=== PATIENT | female | born 1985 | race Caucasian/White ===

== ENCOUNTER 2016-11-21 11:43 | Inpatient (IN) | payer OTHER ==
[2016-11-21 12:14] VITALS: BMI 41.8
--- NOTE | 2016-11-21 16:13 | HP ---
CIWA Score - CIWA Score Nausea/Vomitin Muscle Tremors: 4-Moderate,w/Arms Extend Anxiety: 4-Mod. Anxious/Guarded Agitation: 4-Moderately Restless Paroxysmal Sweats: 3 Orientation: 0-Oriented Tacttile Disturbances: 0-None Auditory Disturbances: 0-None Visual Disturbances: 0-None Headache: 0-None Present CIWA-Ar Total Score: 17 Admission ROS BHS - HPI Allergies/Adverse Reactions: Allergies Allergy/AdvReac Type Severity Reaction Status Date / Time No Known Drug Allergies Allergy Verified 11/21/16 15:22 nka Allergy Uncoded 11/21/16 15:22 - Ebola screening Have you traveled outside of the country in the last 21 days: No Have you had contact with anyone from an Ebola affected area: No Have you been sick,other than usual withdrawal symptoms: No Do you have a fever: No - Review of Systems Constitutional: Diaphoresis EENT: reports: No Symptoms Reported Respiratory: reports: Cough Cardiac: reports: Palpitations (pulse 115) GI: reports: Nausea, Abdominal cramping : reports: No Symptoms Reported Musculoskeletal: reports: Back Pain, Joint Pain Integumentary: reports: Sweating Neuro: reports: Seizure (2007), Tremors Endocrine: reports: No Symptoms Reported Hematology: reports: No Symptoms Reported Psychiatric: reports: No Sypmtoms Reported Other Systems: Reviewed and Negative Patient History - Patient Medical History Hx Anemia: No Hx Asthma: No Hx Chronic Obstructive Pulmonary Disease (COPD): No Hx Cancer: No Hx Cardiac Disorders: No Hx Congestive Heart Failure: No Hx Hypertension: Yes (hctz 12.5) Hx Hypercholesterolemia: No Hx Pacemaker: No HX Cerebrovascular Accident: No Hx Seizures: Yes (BZO rlt 2007) Hx Dementia: No Hx Diabetes: No Hx Gastrointestinal Disorders: No Hx Liver Disease: Yes Hx Genitourinary Disorders: No Hx Sexually Transmitted Disorders: No Hx Renal Disease (ESRD): No Hx Thyroid Disease: No Hx Human Immunodeficiency Virus (HIV): No Hx Hepatitis C: Yes (being w/u for treatment) Hx Depression: Yes (panic attacks) Hx Suicide Attempt: No Hx Bipolar Disorder: No Hx Schizophrenia: No - Patient Surgical History Past Surgical History: Yes Hx Neurologic Surgery: No Hx Cataract Extraction: No Hx Cardiac Surgery: No Hx Lung Surgery: No Hx Breast Surgery: No Hx Breast Biopsy: No Hx Abdominal Surgery: No Hx Appendectomy: No Hx Cholecystectomy: No Hx Genitourinary Surgery: No Hx Section: No Hx Orthopedic Surgery: Yes (RT ANKLE SURGERY, ORIF) Anesthesia Reaction: No - PPD History Previous Implant?: Yes Documented Results: Negative w/o proof Implanted On Prior [facility] Admission?: No PPD to be Administered?: Yes - Reproductive History Patient is a Female of Child Bearing Age (11 -55 yrs old): Yes Last Menstrual Period: 11/05/16 Patient : No - Smoking Cessation Smoking history: Current every day smoker Have you smoked in the past 12 months: Yes Aproximately how many cigarettes per day: 10 Hx Chewing Tobacco Use: No Initiated information on smoking cessation: Yes 'Breaking Loose' booklet given: 11/21/16 - Substance & Tx. History Hx Alcohol Use: Yes Hx Substance Use: Yes Substance Use Type: Alcohol, Cocaine Hx Substance Use Treatment: Yes (OTP) - Substances Abused Heroin Route: Injection Frequency: 1-3 times last 30 days Amount used: 2bags- $20 Age of first use: 15 Date of Last Use: 11/18/16 Alcohol Route: Oral Frequency: Daily Amount used: vodka- half gallon daily- $20 Age of first use: 15 Date of Last Use: 11/21/16 Cocaine Route: Injection Frequency: 3-6 times per week Amount used: $100 Age of first use: 26 Date of Last Use: 11/20/16 Family Disease History - Family Disease History Family Disease History: CA: Father (esophagus), Other: Brother (opioid) Admission Physical Exam BHS - Vital Signs Vital Signs: Vital Signs - 24 hr 11/21/16 12:06 Temperature 98.0 F Pulse Rate 115 H Respiratory 20 Rate Blood Pressure 140/96 - Physical General Appearance: Yes: Tremorous, Sweating, Anxious HEENTM: Yes: Within Normal Limits Respiratory: Yes: Chest Non-Tender, Lungs Clear, Normal Breath Sounds Neck: Yes: Supple Breast: Yes: Breast Exam Deferred Cardiology: Yes: Regular Rhythm, Regular Rate, S1, S2 Abdominal: Yes: Normal Bowel Sounds, Non Tender, Soft, Protuberent Genitourinary: Yes: Within Normal Limits Back: Yes: Within Normal Limits Musculoskeletal: Yes: Within Normal Limits Extremities: Yes: Tremors Neurological: Yes: Fully Oriented, Alert Integumentary: Yes: Diaphoresis Lymphatic: Yes: Within Normal Limits - Diagnostic (1) Alcohol dependence with uncomplicated withdrawal Current Visit: Yes Status: Acute (2) Cocaine dependence, uncomplicated Current Visit: Yes Status: Acute (3) Opioid dependence on agonist therapy Current Visit: Yes Status: Acute Cleared for Admission [facility] - Detox or Rehab [facility] Level of Care: Medically Managed Detox Regimen/Protocol: Librium [facility] Breath Alcohol Content Breath Alcohol Content: 0.021 Urine Pregancy Test - Result Urine Test Results: Negative- NO Line Present Urine Drug Screen - Results Drug Screen Negative: No Urine Drug Screen Results: GABRIELLA-Cocaine, OPI-Opiates, BZO-Benzodiazepines, MTD- Methadone, TCA-Tricyclic Antidepress, OXY-Oxycodone
[2016-11-21] MEDS ORDERED: diazePAM 5 MG TABLET PO ONE (16:21)
[2016-11-21] MEDS ORDERED: IBUPROFEN 400 MG TABLET (FP) PO PRN (16:21)
[2016-11-21] MEDS ORDERED: NICOTINE POLACRILEX 2 MG GUM BC PRN (16:21)
[2016-11-21] MEDS ORDERED: MAG HYDROX/AL HYDROX/SIMETH 30 ML UNIT-DOSE CUP PO PRN (16:21)
[2016-11-21] MEDS ORDERED: P-EPHED 60MG/TRIPROLIDI 2.5MG TABLET PO PRN (16:21)
[2016-11-21] MEDS ORDERED: MENTHOL/PHENOL 1 EACH UD MM PRN (16:21)
[2016-11-21] MEDS ORDERED: MAGNESIUM HYDROX 2400MG/30ML ORAL SUSPENSION 30 ML CUP PO PRN (16:21)
[2016-11-21] MEDS ORDERED: guaiFENesin/D-METHORPHAN HB 10 ML UNIT-DOSE CUPS PO PRN (16:21)
[2016-11-21] MEDS ORDERED: MAGNESIUM CITRATE 300 ML BOTTLE PO PRN (16:21)
[2016-11-21] MEDS ORDERED: LOPERAMIDE HCL 2 MG CAPSULE PO PRN (16:21)
[2016-11-21] MEDS ORDERED: ACETAMINOPHEN 325 MG TABLET (FP) PO PRN (16:21)
[2016-11-21] MEDS ORDERED: hydrOXYzine PAMOATE 50 MG CAPSULE (FP) PO PRN (16:21)
[2016-11-21] MEDS: NICOTINE 21 MG/24 HOURS TOPICAL PATCH TD SCH (17:05)
[2016-11-21] MEDS: diphenhydrAMINE HCL 50 MG CAPSULE PO PRN (22:16)
[2016-11-21] MEDS: THIAMINE HCL 100 MG TABLET (FP) PO SCH (22:16)
[2016-11-21] MEDS: diazePAM 5 MG TABLET PO SCH (22:16)
[2016-11-22] MEDS: diazePAM 5 MG TABLET PO PRN ×3 (00:30→16:51)
[2016-11-22] MEDS: diphenhydrAMINE HCL 50 MG CAPSULE PO PRN (00:30)
[2016-11-22] MEDS: diazePAM 5 MG TABLET PO SCH ×3 (05:14→22:11)
[2016-11-22] MEDS ORDERED: METHADONE HCL 10 MG TABLET PO ONE (08:43)
--- NOTE | 2016-11-22 08:51 | PN ---
S CIWA - CIWA Score Nausea/Vomitin Muscle Tremors: 2 Anxiety: 3 Agitation: 3 Paroxysmal Sweats: 3 Orientation: 0-Oriented Tacttile Disturbances: 2-Mild Itch/Numbness/Burn Auditory Disturbances: 0-None Visual Disturbances: 0-None Headache: 0-None Present CIWA-Ar Total Score: 15 BHS Progress Note (SOAP) Subjective: INTERRUPTED SLEEP, SWEATS, SHAKES, BODYACHES Objective: 11/22/16 08:49 Vital Signs Temperature 97.5 F L 11/22/16 06:00 Pulse Rate 93 H 11/22/16 06:00 Respiratory Rate 18 11/22/16 06:00 Blood Pressure 131/84 11/22/16 06:00 O2 Sat by Pulse Oximetry (%) 11/22/16 10:24 PT AOX3 IN NAD AMBULATING Assessment: 11/22/16 08:50 withdrawal sx's 11/22/16 10:24 Plan: cont. detox increase fluids methadone 115mg /d MOTRIN PRN
[2016-11-22] MEDS ORDERED: METHADONE 80 MG, METHADONE 30 MG, METHADONE 5 MG PO ONE (09:00)
[2016-11-22] MEDS ORDERED: METHADONE HCL 10 MG TABLET ONE (09:18)
[2016-11-22] MEDS ORDERED: METHADONE HCL 40 MG DISPERSABLE TABLET ONE (09:18)
[2016-11-22] MEDS ORDERED: METHADONE HCL 5 MG TABLET ONE (09:19)
[2016-11-22] MEDS: NICOTINE 21 MG/24 HOURS TOPICAL PATCH TD SCH (10:12)
[2016-11-22] MEDS: PRENATAL VITAMINS W/ FOLIC ACID TABLET (FP) PO SCH (10:13)
[2016-11-22 10:28] LABS: MCH 27.1 pg (25.7-33.7); MCHC 33.1 g/dl (32.0-36.0); MEAN CELL VOLUME 81.8 fl (80-96); PLATELET COUNT 245 K/MM3 (134-434); RDW 13.5 % (11.6-15.6)
[2016-11-22] MEDS ORDERED: ZOLPIDEM TARTRATE 5 MG TABLET PO PRN (10:38)
[2016-11-22] MEDS ORDERED: hydrOXYzine PAMOATE 50 MG CAPSULE (FP) PO PRN (10:38)
[2016-11-22 10:41] LABS: ALBUMIN 3.3 g/dl (3.4-5.0); ALK PHOS 85 U/L (45-117); BILIRUBIN,TOTAL 0.3 mg/dL (0.2-1.0); CALCIUM 8.7 mg/dL (8.5-10.1); CO2 30 mmol/L (21-32); CREATININE 0.8 mg/dL (0.55-1.02); GLUCOSE,RANDOM 74 mg/dL (74-106); SGOT/AST 21 U/L (15-37); SGPT/ALT 34 U/L (12-78); TOT PROT 6.7 g/dl (6.4-8.2)
[2016-11-22 10:46] LABS: ANION GAP 7 (8-16)
[2016-11-22] MEDS: CYCLOBENZAPRINE HCL 10 MG TABLET (FP) PO SCH ×2 (10:48→22:11)
--- NOTE | 2016-11-22 14:54 | CONSULT ---
[facility] Psychiatric Consult - Data Date of interview: 11/22/16 Admission source: [facility] Identifying data: This is 31 years old female with no psychiatric hospitalization history intoxicated with: Alcohol, Cocaine, Opioids and Nicotine Substance Abuse History: - Smoking Cessation. Smoking history: Current every day smoker. Have you smoked in the past 12 months: Yes. Aproximately how many cigarettes per day: 10. Hx Chewing Tobacco Use: No. Initiated information on smoking cessation: Yes. 'Breaking Loose' booklet given: 11/21/16. - Substance & Tx. History. Hx Alcohol Use: Yes. Hx Substance Use: Yes. Substance Use Type : Alcohol, Cocaine. Hx Substance Use Treatment: Yes (OTP). - Substances Abused. Heroin. Route: Injection. Frequency: 1-3 times last 30 days. Amount used: 2bags- $20. Age of first use: 15. Date of Last Use: 11/18/16. * * Alcohol. Route: Oral. Frequency: Daily. Amount used: vodka- half gallon daily- $20. Age of first use: 15. Date of Last Use: 11/21/16. Cocaine. Route: Injection. Frequency: 3-6 times per week. Amount used: $100. Age of first use: 26. Date of Last Use: 11/20/16 Medical History: Denies Psychiatric History: Patient reprots history of anxiety and depression, reports taking prior to admission: Zoloft 25mg po qd. Ambien 10mg po qhs. Flexeril 10mg po bid Physical/Sexual Abuse/Trauma History: Denies Additional Comment: Zoloft 25mg po qd. Ambien 10mg po qhs. Flexeril 10mg po bid Mental Status Exam - Mental Status Exam Alert and Oriented to: Person Cognitive Function: Fair Patient Appearance: Unkempt Mood: Sad Affect: Flat Patient Behavior: Sedated Speech Pattern: Delayed Voice Loudness: Mildly Soft/Quiet Thought Process: Circumstantial Thought Disorder: Being Controlled Hallucinations: Denies Suicidal Ideation: Denies Homicidal Ideation: Denies Insight/Judgement: Fair Sleep: Difficulty falling asleep Appetite: Fair Muscle strength/Tone: Mild Hypotonicity Gait/Station: Shuffling Additional Comments: Zoloft 25mg po qd. Ambien 10mg po qhs. Flexeril 10mg po bid Psychiatric Findings - Problem List ([place] 1, 2,3) (1) Alcohol dependence with uncomplicated withdrawal Current Visit: Yes Status: Acute (2) Cocaine dependence, uncomplicated Current Visit: Yes Status: Acute (3) Opioid dependence on agonist therapy Current Visit: Yes Status: Acute (4) Drug-induced mood disorder Current Visit: Yes Status: Acute - Initial Treatment Plan Initial Treatment Plan: Zoloft 25mg po qd. Ambien 10mg po qhs. Flexeril 10mg po bid
--- NOTE | 2016-11-22 15:01 | EKG ---
Test Reason : Blood Pressure : / mmHG Vent. Rate : 086 BPM Atrial Rate : 086 BPM P-R Int : 142 ms QRS Dur : 084 ms QT Int : 380 ms P-R-T Axes : 042 017 022 degrees QTc Int : 454 ms NORMAL SINUS RHYTHM NORMAL ECG NO PREVIOUS ECGS AVAILABLE Confirmed by DALJIT SUAZO MD ([id number]) on 11/22/2016 3:00:50 PM Referred By: Confirmed By:DALJIT SUAZO MD
[2016-11-22] MEDS: THIAMINE HCL 100 MG TABLET (FP) PO SCH (22:12)
[2016-11-22] MEDS: ZOLPIDEM TARTRATE 10 MG TABLET (PARK CARE ONLY) PO PRN (22:15)
[2016-11-23] MEDS: diazePAM 5 MG TABLET PO PRN ×3 (03:20→18:43)
[2016-11-23] MEDS ORDERED: METHADONE HCL 10 MG TABLET ONE ×2 (04:09→04:42)
[2016-11-23] MEDS ORDERED: METHADONE HCL 40 MG DISPERSABLE TABLET ONE ×2 (04:10→04:42)
[2016-11-23] MEDS ORDERED: METHADONE HCL 5 MG TABLET ONE (04:42)
[2016-11-23] MEDS ORDERED: METHADONE HCL 5 MG TABLET PO SCH (06:00)
[2016-11-23] MEDS: METHADONE 80 MG, METHADONE 30 MG, METHADONE 5 MG PO SCH (07:11)
--- NOTE | 2016-11-23 09:57 | PN ---
S CIWA - CIWA Score Nausea/Vomitin-No Nausea/No Vomiting Muscle Tremors: 4-Moderate,w/Arms Extend Anxiety: 3 Agitation: 4-Moderately Restless Paroxysmal Sweats: 3 Orientation: 0-Oriented Tacttile Disturbances: 0-None Auditory Disturbances: 0-None Visual Disturbances: 0-None Headache: 1-Very Mild CIWA-Ar Total Score: 15 BHS Progress Note (SOAP) Subjective: anxiety sweats shakes constipation irritable Objective: 11/23/16 10:17 Vital Signs Temperature 97.7 F 11/23/16 10:01 Pulse Rate 104 H 11/23/16 10:01 Respiratory Rate 20 11/23/16 10:01 Blood Pressure 125/79 11/23/16 10:01 O2 Sat by Pulse Oximetry (%) Laboratory Tests 11/21/16 11/22/16 11/22/16 07:00 07:00 07:00 WBC 9.0 RBC 4.81 Hgb 13.0 Hct 39.3 MCV 81.8 MCHC 33.1 RDW 13.5 Plt Count 245 MPV 8.0 Sodium 141 Potassium 4.3 Chloride 104 Carbon Dioxide 30 Anion Gap 7 L BUN 14 Creatinine 0.8 Creat Clearance w eGFR > 60 Random Glucose 74 Calcium 8.7 Total Bilirubin 0.3 AST 21 ALT 34 Alkaline Phosphatase 85 Total Protein 6.7 Albumin 3.3 L RPR Titer Hepatitis C Antibody >11.0 H 11/22/16 07:00 WBC RBC Hgb Hct MCV MCHC RDW Plt Count MPV Sodium Potassium Chloride Carbon Dioxide Anion Gap BUN Creatinine Creat Clearance w eGFR Random Glucose Calcium Total Bilirubin AST ALT Alkaline Phosphatase Total Protein Albumin RPR Titer Nonreactive Hepatitis C Antibody awake/alert ambulating no acute distress Assessment: 11/23/16 10:17 withdrawal sx Plan: continue detox increase fluids prune juice
[2016-11-23] MEDS: diazePAM 5 MG TABLET PO SCH ×2 (10:38→22:08)
[2016-11-23] MEDS: NICOTINE 21 MG/24 HOURS TOPICAL PATCH TD SCH (10:38)
[2016-11-23] MEDS: CYCLOBENZAPRINE HCL 10 MG TABLET (FP) PO SCH ×2 (10:38→22:08)
[2016-11-23] MEDS: PRENATAL VITAMINS W/ FOLIC ACID TABLET (FP) PO SCH (10:38)
--- NOTE | 2016-11-23 10:56 | PN ---
BHS Progress Note (SOAP) Subjective: feeling better , wants to see sindi Objective: 11/23/16 10:53 Vital Signs Temperature 97.7 F 11/23/16 10:01 Pulse Rate 104 H 11/23/16 10:01 Respiratory Rate 20 11/23/16 10:01 Blood Pressure 125/79 11/23/16 10:01 O2 Sat by Pulse Oximetry (%) Laboratory Tests 11/21/16 11/22/16 11/22/16 07:00 07:00 07:00 WBC 9.0 RBC 4.81 Hgb 13.0 Hct 39.3 MCV 81.8 MCHC 33.1 RDW 13.5 Plt Count 245 MPV 8.0 Sodium 141 Potassium 4.3 Chloride 104 Carbon Dioxide 30 Anion Gap 7 L BUN 14 Creatinine 0.8 Creat Clearance w eGFR > 60 Random Glucose 74 Calcium 8.7 Total Bilirubin 0.3 AST 21 ALT 34 Alkaline Phosphatase 85 Total Protein 6.7 Albumin 3.3 L RPR Titer Hepatitis C Antibody >11.0 H 11/22/16 07:00 WBC RBC Hgb Hct MCV MCHC RDW Plt Count MPV Sodium Potassium Chloride Carbon Dioxide Anion Gap BUN Creatinine Creat Clearance w eGFR Random Glucose Calcium Total Bilirubin AST ALT Alkaline Phosphatase Total Protein Albumin RPR Titer Nonreactive Hepatitis C Antibody pt aox3 in nad ambulating Assessment: 11/23/16 10:53 withdrawal sx's h/o depression waants to see sindi for lexapro Plan: cont. detox increase fluids
[2016-11-23] MEDS: ZOLPIDEM TARTRATE 10 MG TABLET (PARK CARE ONLY) PO PRN (22:08)
[2016-11-23] MEDS: THIAMINE HCL 100 MG TABLET (FP) PO SCH (22:08)
[2016-11-24] MEDS: diphenhydrAMINE HCL 50 MG CAPSULE PO PRN ×2 (00:22→22:10)
[2016-11-24] MEDS ORDERED: METHADONE HCL 10 MG TABLET ONE (04:53)
[2016-11-24] MEDS ORDERED: METHADONE HCL 40 MG DISPERSABLE TABLET ONE (04:54)
[2016-11-24] MEDS ORDERED: METHADONE HCL 5 MG TABLET ONE (04:55)
[2016-11-24] MEDS: METHADONE 80 MG, METHADONE 30 MG, METHADONE 5 MG PO SCH (06:27)
[2016-11-24] MEDS: diazePAM 5 MG TABLET PO PRN ×2 (06:30→14:52)
[2016-11-24] MEDS: PRENATAL VITAMINS W/ FOLIC ACID TABLET (FP) PO SCH (10:19)
[2016-11-24] MEDS: NICOTINE 21 MG/24 HOURS TOPICAL PATCH TD SCH (10:20)
[2016-11-24] MEDS: CYCLOBENZAPRINE HCL 10 MG TABLET (FP) PO SCH ×2 (10:20→22:09)
[2016-11-24] MEDS: diazePAM 5 MG TABLET PO SCH ×2 (10:20→22:09)
--- NOTE | 2016-11-24 11:09 | PN ---
BHS Progress Note (SOAP) Subjective: interrupted sleep, sweats, constipation Objective: 11/24/16 11:07 Vital Signs Temperature 97.5 F L 11/24/16 10:00 Pulse Rate 109 H 11/24/16 10:00 Respiratory Rate 18 11/24/16 10:00 Blood Pressure 141/78 11/24/16 10:00 O2 Sat by Pulse Oximetry (%) Laboratory Tests 11/21/16 11/22/16 11/22/16 07:00 07:00 07:00 WBC 9.0 RBC 4.81 Hgb 13.0 Hct 39.3 MCV 81.8 MCHC 33.1 RDW 13.5 Plt Count 245 MPV 8.0 Sodium 141 Potassium 4.3 Chloride 104 Carbon Dioxide 30 Anion Gap 7 L BUN 14 Creatinine 0.8 Creat Clearance w eGFR > 60 Random Glucose 74 Calcium 8.7 Total Bilirubin 0.3 AST 21 ALT 34 Alkaline Phosphatase 85 Total Protein 6.7 Albumin 3.3 L RPR Titer Hepatitis C Antibody >11.0 H 11/22/16 07:00 WBC RBC Hgb Hct MCV MCHC RDW Plt Count MPV Sodium Potassium Chloride Carbon Dioxide Anion Gap BUN Creatinine Creat Clearance w eGFR Random Glucose Calcium Total Bilirubin AST ALT Alkaline Phosphatase Total Protein Albumin RPR Titer Nonreactive Hepatitis C Antibody pt aox3 in nad ambulating Assessment: 11/24/16 11:08 withdrawal sx's constipation Plan: cont. detox increase fluids mom d/c in am,
[2016-11-24 16:02] LABS: URINE APPEARANCE CLEAR; URINE BILIRUBIN NEGATIVE (NEGATIVE); URINE BLOOD NEGATIVE (NEGATIVE); URINE COLOR LTYELLOW; URINE GLUCOSE (UA) NEGATIVE (NEGATIVE); URINE KETONE NEGATIVE (NEGATIVE); URINE NITRITE NEGATIVE (NEGATIVE); URINE PROTEIN NEGATIVE (NEGATIVE); URINE UROBILINOGEN NEGATIVE E.U./dl (0.2-1.0)
[2016-11-24 16:20] LABS: URINE LEUK ESTERASE TRACE (NEGATIVE)
[2016-11-24 16:30] LABS: URINE BACTERIA RARE /hpf (NONE SEEN); URINE MUCUS RARE; URINE RBC 1 /hpf (0-3); URINE WBC 1 /hpf (3-5)
[2016-11-24] MEDS: THIAMINE HCL 100 MG TABLET (FP) PO SCH (22:08)
[2016-11-24] MEDS: ZOLPIDEM TARTRATE 10 MG TABLET (PARK CARE ONLY) PO PRN (22:09)
[2016-11-25] MEDS ORDERED: METHADONE HCL 10 MG TABLET ONE (04:22)
[2016-11-25] MEDS ORDERED: METHADONE HCL 40 MG DISPERSABLE TABLET ONE (04:22)
[2016-11-25] MEDS ORDERED: METHADONE HCL 5 MG TABLET ONE (04:23)
[2016-11-25] MEDS: METHADONE 80 MG, METHADONE 30 MG, METHADONE 5 MG PO SCH (05:24)
--- NOTE | 2016-11-25 09:11 | DS ---
[facility] Detox Discharge Summary Admission Date: 11/21/16 Discharge Date: 11/25/16 - History Present History: Alcohol Dependence, Cocaine Dependence - Physical Exam Results Vital Signs: Vital Signs Temperature 97.1 F L 11/25/16 06:49 Pulse Rate 91 H 11/25/16 06:49 Respiratory Rate 20 11/25/16 06:49 Blood Pressure 113/65 11/25/16 06:49 O2 Sat by Pulse Oximetry (%) - Treatment Hospital Course: Detox Protocol Followed, Detoxed Safely, Responded well, Discharged Condition Good, Rehab Referral Accepted - Medication Discharge Medications: Ambulatory Orders Cyclobenzaprine HCl [Flexeril 10 mg] 10 mg PO BID PRN 11/21/16 Dextroamphetamine/Amphetamine [Adderall Xr 30 mg Capsule] 30 mg PO DAILY Hydroxyzine Pamoate [Vistaril -] 50 mg PO TID 11/21/16 Sertraline HCl [Zoloft -] 25 mg PO DAILY 11/21/16 Zolpidem Tartrate [Ambien] 10 mg PO HS 11/21/16 Cyclobenzaprine HCl [Flexeril 10 mg] 10 mg PO BID #60 tablet 11/22/16 Hydroxyzine Pamoate [Vistaril -] 50 mg PO TID #90 capsule 11/22/16 Hydroxyzine Pamoate [Vistaril -] 50 mg PO TID PRN #90 11/22/16 Zolpidem Tartrate [Ambien] 10 mg PO HS #14 tablet MDD 10 11/22/16 - Diagnosis (1) Alcohol dependence with uncomplicated withdrawal Current Visit: Yes Status: Chronic (2) Cocaine dependence, uncomplicated Current Visit: Yes Status: Chronic (3) Drug-induced mood disorder Current Visit: Yes Status: Acute (4) Opioid dependence on agonist therapy Current Visit: Yes Status: Acute - AMA Did Patient Leave Against Medical Advice: No
[2016-11-25 09:47] VITALS: BP 128/69; PULSE 104; TEMP 98.1
[2016-11-25] MEDS ORDERED: diazePAM 5 MG TABLET PO SCH (10:00)
[2016-11-25] MEDS: CYCLOBENZAPRINE HCL 10 MG TABLET (FP) PO SCH (10:16)
[2016-11-25] MEDS: PRENATAL VITAMINS W/ FOLIC ACID TABLET (FP) PO SCH (10:16)
[2016-11-25] MEDS: NICOTINE 21 MG/24 HOURS TOPICAL PATCH TD SCH (10:49)
== END 2016-11-25 11:26 | disposition other institution (70) | DRG 773 ==
LOC: YASAS 11:43 → Y6N 15:54
PROVIDERS: ADMIT Internal Medicine; ATTEND Internal Medicine Addiction Medicine
PROC: HZ2ZZZZ Detoxification Services for Substance Abuse Treatment (ICD-10-PCS; principal; 2016-11-25)
DX: F11.20 Opioid dependence, uncomplicated (principal); F10.230 Alcohol dependence with withdrawal, uncomplicated; F14.20 Cocaine dependence, uncomplicated; F19.24 Other psychoactive substance dependence with psychoactive substance-induced mood disorder; F41.0 Panic disorder [episodic paroxysmal anxiety]; I10 Essential (primary) hypertension; B18.2 Chronic viral hepatitis C; K76.9 Liver disease, unspecified; Z86.69 Personal history of other diseases of the nervous system and sense organs
CPT/HCPCS: 36415; 80053; 81003; 81015; 85027; 86593; 87522; 93005; 93010

== ENCOUNTER 2016-11-25 11:18 | Inpatient (IN) | payer OTHER ==
[2016-11-25 12:24] VITALS: BMI 43.5
[2016-11-25] MEDS ORDERED: MENTHOL/PHENOL 1 EACH UD MM PRN (12:39)
[2016-11-25] MEDS ORDERED: ACETAMINOPHEN 325 MG TABLET (FP) PO PRN (12:39)
[2016-11-25] MEDS ORDERED: P-EPHED 60MG/TRIPROLIDI 2.5MG TABLET PO PRN (12:39)
[2016-11-25] MEDS ORDERED: hydrOXYzine PAMOATE 50 MG CAPSULE (FP) PO PRN (12:39)
[2016-11-25] MEDS ORDERED: MAGNESIUM CITRATE 300 ML BOTTLE PO PRN (12:39)
[2016-11-25] MEDS ORDERED: guaiFENesin/D-METHORPHAN HB 10 ML UNIT-DOSE CUPS PO PRN (12:39)
[2016-11-25] MEDS ORDERED: MAGNESIUM HYDROX 2400MG/30ML ORAL SUSPENSION 30 ML CUP PO PRN (12:39)
[2016-11-25] MEDS ORDERED: LOPERAMIDE HCL 2 MG CAPSULE PO PRN (12:39)
[2016-11-25] MEDS ORDERED: MAG HYDROX/AL HYDROX/SIMETH 30 ML UNIT-DOSE CUP PO PRN (12:39)
--- NOTE | 2016-11-25 12:44 | HP ---
[facility] Re[facility] Assess/Revision - Admission History Admitted to Rehab from: [facility] [address] [place] Date of Admission to Rehab: 11/25/16 - Vital signs Vital Signs: Vital Signs Period Temp Pulse Resp BP Sys/Chavez Pulse Ox Last 24 Hr 98 F-98 F 106-106 18-18 130-130/80-80 - Findings Detox History & Physical reviewed: Yes Concur with findings: Yes Comments/Additional Findings: FOR REHAB PROTOCOL
[2016-11-25] MEDS: hydrOXYzine PAMOATE 50 MG CAPSULE (FP) PO SCH ×2 (13:31→21:16)
[2016-11-25] MEDS: THIAMINE HCL 100 MG TABLET (FP) PO SCH (21:16)
[2016-11-25] MEDS: CYCLOBENZAPRINE HCL 10 MG TABLET (FP) PO SCH (21:18)
[2016-11-26] MEDS ORDERED: METHADONE HCL 10 MG TABLET PO SCH (06:00)
[2016-11-26] MEDS ORDERED: METHADONE HCL 5 MG TABLET ONE (06:02)
[2016-11-26] MEDS ORDERED: METHADONE HCL 40 MG DISPERSABLE TABLET ONE (06:03)
[2016-11-26] MEDS ORDERED: METHADONE HCL 10 MG TABLET ONE (06:03)
[2016-11-26] MEDS: METHADONE 80 MG, METHADONE 30 MG, METHADONE 5 MG PO SCH (06:24)
[2016-11-26] MEDS: hydrOXYzine PAMOATE 50 MG CAPSULE (FP) PO SCH ×3 (06:24→23:12)
[2016-11-26] MEDS: CYCLOBENZAPRINE HCL 10 MG TABLET (FP) PO SCH ×2 (10:26→21:17)
[2016-11-26] MEDS: NICOTINE 21 MG/24 HOURS TOPICAL PATCH TD SCH (10:26)
[2016-11-26] MEDS: PRENATAL VITAMINS W/ FOLIC ACID TABLET (FP) PO SCH (10:26)
--- NOTE | 2016-11-26 11:12 | HP ---
Psychiatrist Admission - Data Date of interview: 11/26/16 Admission source: [address] [place] [address] Identifying data: This is the first admssion to [address] [place] [address] for this 31 years old single female,undomiciled,unemployed,supported by family. Medical History: Obesity,Hep C,H/O R ankle fracture . Psychiatric History: First contact with psychiatrist was in 2009 while in outpatient rehabilitation clinic in the [place].Patient addressed anxiety,mood swings,sleeping problems and heroin,cocaine and drinking problems.Patient has been dx with Substance induced mood disorder.Patient was placed on Zoloft 25 mg po daily and Clonazepam 1 mg po tid as needed,Vistaril and Ambien as needed.Reports no responds to Zoloft.She was also dx with ADHD in childhood, patient was on Stratterra,Concerta and finally in Ritalin on and off.Denies previous psychiatric hospitalizations,no suicidal attempts in the past.She currently under care of psychiatrist and psychotherapist at [facility] clinic in the [place].Current meds:Zoloft 25 mg po daily (stopped a week before admission to Detox due to side effects:GI symptoms).,Vistaril 50 mg po q 6 hrs prn for anxiety,Ambien 10 mg po hs.. Vital Signs: Vital Signs - 24 hr 11/25/16 11/25/16 11/26/16 12:22 12:24 00:30 Temperature 98 F 98 F Pulse Rate 106 H 106 H Respiratory 18 18 18 Rate Blood Pressure 130/80 130/80 11/26/16 11/26/16 03:30 06:45 Temperature 97.8 F Pulse Rate 96 H Respiratory 18 16 Rate Blood Pressure 111/74 Allergies/Adverse Reactions: Allergies Allergy/AdvReac Type Severity Reaction Status Date / Time No Known Drug Allergies Allergy Verified 11/21/16 15:22 nka Allergy Uncoded 11/21/16 15:22 Date of last physical exam: 11/21/16 Concur with the findings of this exam: Yes - Substance Abuse/Tx History Hx Alcohol Use: Yes (drining since 16 yo,half gallon of vodka daily ) Hx Substance Use: Yes (heroin since 15 yo 6 times a week,$80,cocaine since 15 yo injected,$100week) Substance Use Type: Alcohol, Cocaine, Heroin Hx Substance Use Treatment: Yes (completed detox) - Admission Criteria Previous failed treatment: Yes Poor recovery environment: Yes Comorbidities: Yes Lacks judgement: Yes Mental Status Exam - Mental Status Exam Alert and Oriented to: Time, Place, Person Cognitive Function: Grossly Intact Patient Appearance: Unkempt Mood: Anxious Affect: Mood Congruent, Labile Patient Behavior: Cooperative Speech Pattern: Clear Voice Loudness: Normal Thought Process: Goal Oriented Thought Disorder: Not Present Hallucinations: Denies Suicidal Ideation: Denies Homicidal Ideation: Denies Insight/Judgement: Fair Sleep: Difficulty falling asleep Appetite: Good Muscle strength/Tone: Normal Gait/Station: Normal Psychiatric Findings - Problem List ([place] 1, 2,3) (1) Drug-induced mood disorder Current Visit: Yes Status: Chronic (2) Opioid dependence on agonist therapy Current Visit: Yes Status: Chronic (3) Alcohol dependence with uncomplicated withdrawal Current Visit: Yes Status: Chronic (4) Cocaine dependence, uncomplicated Current Visit: Yes Status: Chronic - Initial Treatment Plan Initial Treatment Plan: Continue current medications. will monitor porgress.
[2016-11-26] MEDS ORDERED: PT OWN MED DRAWER 7, Y5N ONE (19:30)
[2016-11-26] MEDS: SUVOREXANT 10 MG TABLET PO PRN (21:17)
[2016-11-26] MEDS: THIAMINE HCL 100 MG TABLET (FP) PO SCH (21:17)
[2016-11-27] MEDS ORDERED: METHADONE HCL 5 MG TABLET ONE (06:23)
[2016-11-27] MEDS ORDERED: METHADONE HCL 10 MG TABLET ONE (06:23)
[2016-11-27] MEDS ORDERED: METHADONE HCL 40 MG DISPERSABLE TABLET ONE (06:24)
[2016-11-27] MEDS: METHADONE 80 MG, METHADONE 30 MG, METHADONE 5 MG PO SCH (06:50)
[2016-11-27] MEDS: hydrOXYzine PAMOATE 50 MG CAPSULE (FP) PO SCH ×3 (06:51→21:13)
[2016-11-27] MEDS: NICOTINE 21 MG/24 HOURS TOPICAL PATCH TD SCH (10:02)
[2016-11-27] MEDS: CYCLOBENZAPRINE HCL 10 MG TABLET (FP) PO SCH ×2 (10:02→21:13)
[2016-11-27] MEDS: PRENATAL VITAMINS W/ FOLIC ACID TABLET (FP) PO SCH (10:02)
[2016-11-27] MEDS: IBUPROFEN 400 MG TABLET (FP) PO PRN (20:47)
[2016-11-27] MEDS: THIAMINE HCL 100 MG TABLET (FP) PO SCH (21:13)
[2016-11-27] MEDS: SUVOREXANT 10 MG TABLET PO PRN (22:22)
[2016-11-28] MEDS ORDERED: METHADONE HCL 5 MG TABLET ONE (05:43)
[2016-11-28] MEDS ORDERED: METHADONE HCL 10 MG TABLET ONE (05:44)
[2016-11-28] MEDS ORDERED: METHADONE HCL 40 MG DISPERSABLE TABLET ONE (05:44)
[2016-11-28] MEDS: METHADONE 80 MG, METHADONE 30 MG, METHADONE 5 MG PO SCH (06:48)
[2016-11-28] MEDS: hydrOXYzine PAMOATE 50 MG CAPSULE (FP) PO SCH ×3 (06:48→21:11)
[2016-11-28] MEDS: IBUPROFEN 400 MG TABLET (FP) PO PRN (07:00)
[2016-11-28] MEDS: CYCLOBENZAPRINE HCL 10 MG TABLET (FP) PO SCH ×2 (09:46→21:11)
[2016-11-28] MEDS: PRENATAL VITAMINS W/ FOLIC ACID TABLET (FP) PO SCH (09:46)
[2016-11-28] MEDS: NICOTINE 21 MG/24 HOURS TOPICAL PATCH TD SCH (09:46)
[2016-11-28] MEDS: THIAMINE HCL 100 MG TABLET (FP) PO SCH (21:11)
[2016-11-28] MEDS: SUVOREXANT 10 MG TABLET PO PRN (22:17)
[2016-11-29] MEDS: IBUPROFEN 400 MG TABLET (FP) PO PRN ×2 (04:03→13:14)
[2016-11-29] MEDS ORDERED: METHADONE HCL 10 MG TABLET ONE (06:26)
[2016-11-29] MEDS ORDERED: METHADONE HCL 40 MG DISPERSABLE TABLET ONE (06:26)
[2016-11-29] MEDS ORDERED: METHADONE HCL 5 MG TABLET ONE (06:26)
[2016-11-29] MEDS: hydrOXYzine PAMOATE 50 MG CAPSULE (FP) PO SCH ×3 (06:27→21:15)
[2016-11-29] MEDS: METHADONE 80 MG, METHADONE 30 MG, METHADONE 5 MG PO SCH (06:27)
[2016-11-29] MEDS: NICOTINE 21 MG/24 HOURS TOPICAL PATCH TD SCH (09:56)
[2016-11-29] MEDS: PRENATAL VITAMINS W/ FOLIC ACID TABLET (FP) PO SCH (09:57)
[2016-11-29] MEDS: CYCLOBENZAPRINE HCL 10 MG TABLET (FP) PO SCH ×2 (09:57→21:15)
--- NOTE | 2016-11-29 14:39 | PN ---
BHS Progress Note Note: C/O stye rt. upper eyelid P : Maxitrol oin't bid
[2016-11-29] MEDS: THIAMINE HCL 100 MG TABLET (FP) PO SCH (21:14)
[2016-11-29] MEDS: NEO/POLYMYX B SULF/DEXAMETH OPHTHALMIC OINTMENT 3.5 GM OD SCH (21:16)
[2016-11-29] MEDS: SUVOREXANT 10 MG TABLET PO PRN (21:55)
[2016-11-30] MEDS ORDERED: METHADONE HCL 5 MG TABLET ONE (03:07)
[2016-11-30] MEDS ORDERED: METHADONE HCL 10 MG TABLET ONE (03:07)
[2016-11-30] MEDS ORDERED: METHADONE HCL 40 MG DISPERSABLE TABLET ONE (03:08)
[2016-11-30] MEDS: METHADONE 80 MG, METHADONE 30 MG, METHADONE 5 MG PO SCH (06:31)
[2016-11-30] MEDS: hydrOXYzine PAMOATE 50 MG CAPSULE (FP) PO SCH ×3 (06:32→21:23)
[2016-11-30] MEDS: NICOTINE 21 MG/24 HOURS TOPICAL PATCH TD SCH (09:41)
[2016-11-30] MEDS: PRENATAL VITAMINS W/ FOLIC ACID TABLET (FP) PO SCH (09:41)
[2016-11-30] MEDS: NEO/POLYMYX B SULF/DEXAMETH OPHTHALMIC OINTMENT 3.5 GM OD SCH ×2 (09:41→21:22)
[2016-11-30] MEDS: CYCLOBENZAPRINE HCL 10 MG TABLET (FP) PO SCH ×2 (09:41→21:23)
[2016-11-30] MEDS ORDERED: PT OWN MED DRAWER 7, Y5N ONE (19:57)
[2016-11-30] MEDS: THIAMINE HCL 100 MG TABLET (FP) PO SCH (21:23)
[2016-11-30] MEDS: diphenhydrAMINE HCL 50 MG CAPSULE PO PRN (22:46)
[2016-12-01] MEDS ORDERED: METHADONE HCL 10 MG TABLET ONE (03:05)
[2016-12-01] MEDS ORDERED: METHADONE HCL 5 MG TABLET ONE (03:05)
[2016-12-01] MEDS ORDERED: METHADONE HCL 40 MG DISPERSABLE TABLET ONE (03:06)
[2016-12-01] MEDS: METHADONE 80 MG, METHADONE 30 MG, METHADONE 5 MG PO SCH (06:36)
[2016-12-01] MEDS: hydrOXYzine PAMOATE 50 MG CAPSULE (FP) PO SCH ×3 (06:37→21:25)
[2016-12-01] MEDS ORDERED: PT OWN MED DRAWER 7, Y5N ONE (08:29)
[2016-12-01] MEDS: NEO/POLYMYX B SULF/DEXAMETH OPHTHALMIC OINTMENT 3.5 GM OD SCH ×2 (09:49→21:26)
[2016-12-01] MEDS: NICOTINE 21 MG/24 HOURS TOPICAL PATCH TD SCH (09:49)
[2016-12-01] MEDS: PRENATAL VITAMINS W/ FOLIC ACID TABLET (FP) PO SCH (09:49)
[2016-12-01] MEDS: CYCLOBENZAPRINE HCL 10 MG TABLET (FP) PO SCH ×2 (09:49→21:26)
[2016-12-01] MEDS: THIAMINE HCL 100 MG TABLET (FP) PO SCH (21:25)
[2016-12-01] MEDS: diphenhydrAMINE HCL 50 MG CAPSULE PO PRN (21:27)
[2016-12-02] MEDS ORDERED: METHADONE HCL 5 MG TABLET ONE (06:12)
[2016-12-02] MEDS ORDERED: METHADONE HCL 10 MG TABLET ONE (06:12)
[2016-12-02] MEDS ORDERED: METHADONE HCL 40 MG DISPERSABLE TABLET ONE (06:12)
[2016-12-02] MEDS: METHADONE 80 MG, METHADONE 30 MG, METHADONE 5 MG PO SCH (06:28)
[2016-12-02] MEDS: hydrOXYzine PAMOATE 50 MG CAPSULE (FP) PO SCH ×3 (06:29→21:24)
[2016-12-02] MEDS ORDERED: PT OWN MED DRAWER 7, Y5N ONE (09:31)
[2016-12-02] MEDS: PRENATAL VITAMINS W/ FOLIC ACID TABLET (FP) PO SCH (10:03)
[2016-12-02] MEDS: CYCLOBENZAPRINE HCL 10 MG TABLET (FP) PO SCH ×2 (10:03→21:21)
[2016-12-02] MEDS: NICOTINE 21 MG/24 HOURS TOPICAL PATCH TD SCH (10:04)
[2016-12-02] MEDS: NEO/POLYMYX B SULF/DEXAMETH OPHTHALMIC OINTMENT 3.5 GM OD SCH ×2 (10:05→21:22)
[2016-12-02] MEDS: THIAMINE HCL 100 MG TABLET (FP) PO SCH (21:21)
[2016-12-02] MEDS: diphenhydrAMINE HCL 50 MG CAPSULE PO PRN ×2 (21:22→23:40)
[2016-12-03] MEDS ORDERED: METHADONE HCL 5 MG TABLET ONE (05:53)
[2016-12-03] MEDS ORDERED: METHADONE HCL 10 MG TABLET ONE (05:53)
[2016-12-03] MEDS ORDERED: METHADONE HCL 40 MG DISPERSABLE TABLET ONE (05:54)
[2016-12-03] MEDS: METHADONE 80 MG, METHADONE 30 MG, METHADONE 5 MG PO SCH (06:38)
[2016-12-03] MEDS: hydrOXYzine PAMOATE 50 MG CAPSULE (FP) PO SCH ×3 (06:38→21:22)
[2016-12-03] MEDS ORDERED: PT OWN MED DRAWER 7, Y5N ONE (08:31)
[2016-12-03] MEDS: CYCLOBENZAPRINE HCL 10 MG TABLET (FP) PO SCH ×2 (09:59→21:22)
[2016-12-03] MEDS: PRENATAL VITAMINS W/ FOLIC ACID TABLET (FP) PO SCH (09:59)
[2016-12-03] MEDS: NICOTINE 21 MG/24 HOURS TOPICAL PATCH TD SCH (10:00)
[2016-12-03] MEDS: NEO/POLYMYX B SULF/DEXAMETH OPHTHALMIC OINTMENT 3.5 GM OD SCH ×2 (10:01→21:24)
[2016-12-03] MEDS ORDERED: NICOTINE POLACRILEX 2 MG GUM BUC PRN (15:41)
[2016-12-03] MEDS: THIAMINE HCL 100 MG TABLET (FP) PO SCH (21:22)
[2016-12-04] MEDS ORDERED: METHADONE HCL 5 MG TABLET ONE (03:12)
[2016-12-04] MEDS ORDERED: METHADONE HCL 40 MG DISPERSABLE TABLET ONE (03:13)
[2016-12-04] MEDS ORDERED: METHADONE HCL 10 MG TABLET ONE (03:13)
[2016-12-04] MEDS: METHADONE 80 MG, METHADONE 30 MG, METHADONE 5 MG PO SCH (06:40)
[2016-12-04] MEDS: hydrOXYzine PAMOATE 50 MG CAPSULE (FP) PO SCH ×3 (06:41→21:19)
[2016-12-04] MEDS ORDERED: PT OWN MED DRAWER 7, Y5N ONE ×2 (08:46→20:10)
[2016-12-04] MEDS: PRENATAL VITAMINS W/ FOLIC ACID TABLET (FP) PO SCH (10:02)
[2016-12-04] MEDS: NICOTINE 21 MG/24 HOURS TOPICAL PATCH TD SCH (10:02)
[2016-12-04] MEDS: CYCLOBENZAPRINE HCL 10 MG TABLET (FP) PO SCH ×2 (10:02→21:19)
[2016-12-04] MEDS: NEO/POLYMYX B SULF/DEXAMETH OPHTHALMIC OINTMENT 3.5 GM OD SCH ×2 (10:03→21:20)
[2016-12-04] MEDS: THIAMINE HCL 100 MG TABLET (FP) PO SCH (21:19)
[2016-12-05] MEDS ORDERED: METHADONE HCL 10 MG TABLET ONE (03:05)
[2016-12-05] MEDS ORDERED: METHADONE HCL 5 MG TABLET ONE (03:05)
[2016-12-05] MEDS ORDERED: METHADONE HCL 40 MG DISPERSABLE TABLET ONE (03:05)
[2016-12-05] MEDS: METHADONE 80 MG, METHADONE 30 MG, METHADONE 5 MG PO SCH (06:23)
[2016-12-05] MEDS: hydrOXYzine PAMOATE 50 MG CAPSULE (FP) PO SCH ×3 (06:24→21:07)
[2016-12-05 06:51] VITALS: PULSE 98
[2016-12-05] MEDS: NICOTINE 21 MG/24 HOURS TOPICAL PATCH TD SCH (10:07)
[2016-12-05] MEDS: PRENATAL VITAMINS W/ FOLIC ACID TABLET (FP) PO SCH (10:07)
[2016-12-05] MEDS: CYCLOBENZAPRINE HCL 10 MG TABLET (FP) PO SCH ×2 (10:07→21:07)
[2016-12-05] MEDS: NEO/POLYMYX B SULF/DEXAMETH OPHTHALMIC OINTMENT 3.5 GM OD SCH ×2 (10:07→21:07)
[2016-12-05] MEDS: THIAMINE HCL 100 MG TABLET (FP) PO SCH (21:07)
[2016-12-05] MEDS: diphenhydrAMINE HCL 50 MG CAPSULE PO PRN (23:10)
[2016-12-06] MEDS ORDERED: METHADONE HCL 40 MG DISPERSABLE TABLET ONE (03:35)
[2016-12-06] MEDS ORDERED: METHADONE HCL 5 MG TABLET ONE (03:35)
[2016-12-06] MEDS ORDERED: METHADONE HCL 10 MG TABLET ONE (03:35)
[2016-12-06] MEDS: METHADONE 80 MG, METHADONE 30 MG, METHADONE 5 MG PO SCH (06:32)
[2016-12-06] MEDS: hydrOXYzine PAMOATE 50 MG CAPSULE (FP) PO SCH ×3 (06:33→21:50)
[2016-12-06] MEDS ORDERED: PT OWN MED DRAWER 7, Y5N ONE (08:42)
[2016-12-06] MEDS: NICOTINE 21 MG/24 HOURS TOPICAL PATCH TD SCH (10:00)
[2016-12-06] MEDS: PRENATAL VITAMINS W/ FOLIC ACID TABLET (FP) PO SCH (10:00)
[2016-12-06] MEDS: CYCLOBENZAPRINE HCL 10 MG TABLET (FP) PO SCH ×2 (10:00→21:50)
[2016-12-06] MEDS: NEO/POLYMYX B SULF/DEXAMETH OPHTHALMIC OINTMENT 3.5 GM OD SCH ×2 (10:01→21:22)
--- NOTE | 2016-12-06 16:45 | PN ---
[id number] 98 121/85 Date of Session: 12/06/16 Chief Complaint:: Discharge visit HPI: Patient addressed Alcohol,Cocaine and Opioid dependence comorbid with Substance induced mood disorder. ROS: unremarkable Current Medications: Active Medications Generic Name Dose Route Start Last Admin Trade Name Freq PRN Reason Stop Dose Admin Acetaminophen 650 mg 11/25/16 12:39 Tylenol - PO Q4H PRN FEVER OR PAIN Al Hydroxide/Mg Hydroxide 30 ml 11/25/16 12:39 Mylanta Oral Suspension - PO Q6H PRN DYSPEPSIA Cyclobenzaprine HCl 10 mg 11/25/16 22:00 12/06/16 10:00 Flexeril - PO 10 mg BID AKASH Administration Diphenhydramine HCl 50 mg 11/25/16 12:39 12/05/16 23:10 Benadryl - PO 50 mg HSMR1 PRN Administration FOR ITCHING Eucalyptus/Menthol/Phenol/Sorbitol 1 each 11/25/16 12:39 Cepastat Lozenge - MM Q4H PRN SORE THROAT Guaifenesin 10 ml 11/25/16 12:39 Robitussin Dm - PO Q6H PRN COUGH Hydroxyzine Pamoate 50 mg 11/25/16 14:00 12/06/16 13:09 Vistaril - PO 50 mg TID AKASH Administration Hydroxyzine Pamoate 50 mg 11/25/16 12:39 11/26/16 18:58 Vistaril - PO 50 mg Q4H PRN Administration AGITATION Ibuprofen 400 mg 11/25/16 12:39 11/29/16 13:14 Motrin - PO 400 mg Q6H PRN Administration PAIN Loperamide HCl 4 mg 11/25/16 12:39 Imodium - PO Q6H PRN DIARRHEA Magnesium Hydroxide 30 ml 11/25/16 12:39 Milk Of Magnesia - PO DAILY PRN CONSTIPATION Methadone HCl 80 mg/ Methadone 115 mg 12/02/16 06:00 12/06/16 06:32 HCl 30 mg/ Methadone HCl 5 mg PO 115 mg DAILY@0600 AKASH Administration Neomycin/Polymyxin/Dexamethasone 1 applic 11/29/16 22:00 12/06/16 10:01 Maxitrol Eye Ointment - OD Not Given BID [facility] Nicotine 21 mg 11/26/16 10:00 12/06/16 10:00 Nicoderm Patch - TD 21 mg DAILY AKASH Administration Nicotine Polacrilex 2 mg 12/03/16 15:41 Nicorette Gum - BUC Q2H PRN NICOTINE REPLACEMENT RX Multivit/Folic Acid/Iron 1 tab 11/26/16 10:00 12/06/16 10:00 Vitamins (Sjr) - PO 1 tab DAILY AKASH Administration Pseudoephedrine/Triprolidine 1 combo 11/25/16 12:39 Actifed - PO TID PRN NASAL CONGESTION Thiamine HCl 100 mg 11/25/16 22:00 12/05/16 21:07 Vitamin B1 - PO 100 mg HS AKASH Administration Current Side Effect: No Lab tests ordered: No Lab tests reviewed: Yes Provider note:: Patient will complete this program tomorrow 12/07/16.She has met her treatment goals and will continue to address her issues on outpatient basis at [facility] in the [employer].Patient will continue Vistaril 50 mg po PRN for anxiety.She stopped taking Zoloft before current admission due to side effects and didnt take any antidepressants this time stating that her mood is not depressed,no mood instability. Patient iidentifies areas of difficulties and ways,behaviors she can utlize to maintain recovery.Coping skills,support system utilization had been discussed as well. Patient is stable for discharge tomorrow. Total face to face time:: 35 Mental Status Exam - Mental Status Exam Alert and Oriented to: Time, Place, Person Cognitive Function: Grossly Intact Patient Appearance: Well Groomed Mood: Hopeful, Euthymic Affect: Appropriate, Mood Congruent Patient Behavior: Cooperative Speech Pattern: Clear Voice Loudness: Normal Thought Process: Goal Oriented Thought Disorder: Not Present Hallucinations: Denies Suicidal Ideation: Denies Homicidal Ideation: Denies Insight/Judgement: Fair Sleep: Fair Appetite: Fair Muscle strength/Tone: Normal Gait/Station: Normal Psychiatric Treatment Plan - Problem List (1) Drug-induced mood disorder Current Visit: Yes (2) Opioid dependence on agonist therapy Current Visit: Yes (3) Alcohol dependence with uncomplicated withdrawal Current Visit: Yes (4) Cocaine dependence, uncomplicated Current Visit: Yes
[2016-12-06] MEDS: THIAMINE HCL 100 MG TABLET (FP) PO SCH (21:50)
[2016-12-07] MEDS ORDERED: METHADONE HCL 10 MG TABLET ONE (05:53)
[2016-12-07] MEDS ORDERED: METHADONE HCL 5 MG TABLET ONE (05:53)
[2016-12-07] MEDS ORDERED: METHADONE HCL 40 MG DISPERSABLE TABLET ONE (05:54)
[2016-12-07] MEDS: METHADONE 80 MG, METHADONE 30 MG, METHADONE 5 MG PO SCH (06:42)
[2016-12-07] MEDS: hydrOXYzine PAMOATE 50 MG CAPSULE (FP) PO SCH (06:42)
[2016-12-07 07:34] VITALS: BP 136/85; TEMP 98
[2016-12-07] MEDS: PRENATAL VITAMINS W/ FOLIC ACID TABLET (FP) PO SCH (09:02)
[2016-12-07] MEDS: NEO/POLYMYX B SULF/DEXAMETH OPHTHALMIC OINTMENT 3.5 GM OD SCH (09:03)
[2016-12-07] MEDS: CYCLOBENZAPRINE HCL 10 MG TABLET (FP) PO SCH (09:03)
[2016-12-07] MEDS: NICOTINE 21 MG/24 HOURS TOPICAL PATCH TD SCH (09:03)
== END 2016-12-07 09:30 | disposition home or self-care (01) | DRG 772 ==
LOC: YASAS 11:18 → Y3E 11:19
PROVIDERS: ADMIT Psychiatry & Neurology Psychiatry; ATTEND Psychiatry & Neurology Psychiatry
PROC: HZ42ZZZ Group Counseling for Substance Abuse Treatment, Cognitive-Behavioral (ICD-10-PCS; principal; 2016-12-07)
DX: F11.20 Opioid dependence, uncomplicated (principal); F10.230 Alcohol dependence with withdrawal, uncomplicated; F14.20 Cocaine dependence, uncomplicated; F19.24 Other psychoactive substance dependence with psychoactive substance-induced mood disorder